=== PATIENT | female | born 1960 | race Caucasian/White ===

== ENCOUNTER → 2022-01-30 | Outpatient (CLI) | payer OTHER ==
[2022-01-31 00:09] LABS: T4, Free (Free Thyroxine) 1.2 ng/dL (0.800-1.800)
[2022-01-31 12:42] LABS: Zinc, Serum 74 ug/dL (60-130)
== END | disposition home or self-care (01) ==
LOC: LABWHC1 16:14
PROVIDERS: ATTEND Otolaryngology
DX: R43.9 Unspecified disturbances of smell and taste (principal)
CPT/HCPCS: 36415; 82525; 83036; 84439; 84443; 84630; 86038; 86235

== ENCOUNTER → 2024-03-22 | Outpatient (CLI) | payer MEDICARE ==
--- NOTE | 2024-03-22 19:17 | MR ---
EXAMINATION TYPE: MR lumbar spine wo con DATE OF EXAM: 03/22/2024 COMPARISON: None HISTORY: Chronic lower back pain, BLE radiculopathy. TECHNIQUE: Multiplanar, multisequence images of the lumbar spine were acquired without IV contrast. FINDINGS: The lumbar vertebral bodies do have preserved heights. Mild levocurvature of the lumbar sp ine. Minimal grade 1 anterolisthesis of L3 on L4. Multilevel disc desiccation is present. Multilevel anterior osteophytosis which is most pronounced at L4-L5. The conus medullaris and the distal spinal cord do appear unremarkable with regards to their signal intensity and morphology. L1-L2: No significant disc pathology is identified. The spinal canal and neural foramen are patent. L2-L3: Minimal broad-based disc bulge without significant central canal stenosis. Bilateral facet ar thropathy. Mild right neuroforaminal narrowing. The left neural foramen is patent.. L3-L4: Minimal grade 1 anterolisthesis with uncovering of the disc. Broad-based disc bulge with bila teral facet arthropathy. Minimal central canal narrowing. Left neural foramen is patent. Mild right n eural foraminal narrowing. L4-L5: Broad-based disc bulge is identified with associated enlargement of the facet joints. The spi nal canal remains patent. Right neural foramen is mildly narrowed. Moderate left neuroforaminal narro wing. L5-S1: The intervertebral disc appears round on its contour posteriorly without significant mass eff ect upon the thecal sac. Facet joints are enlarged. Neural canals do remain patent. Other significant findings: None. IMPRESSION: 1. No definitive evidence for disc herniation or significant spinal canal stenosis. 2. Multilevel disc degeneration with associated osteoarthritic changes as described above. 3. Minimal grade 1 anterolisthesis of L3 on L4. [facility], , 03/22/2024 7:15 PM
== END | disposition home or self-care (01) ==
LOC: RADMRIMAIN 17:04
PROVIDERS: ATTEND Physical Medicine & Rehabilitation
DX: M47.817 Spondylosis without myelopathy or radiculopathy, lumbosacral region
CPT/HCPCS: 72148